=== PATIENT | male | born 1975 | race Two or more races ===

== ENCOUNTER → 2023-11-28 14:09 | Outpatient (REF) | payer BC, SELFPAY | LOC: DHCBC HW 14:09 | PROVIDERS: ATTENDING PHYSICIAN Internal Medicine; FAMILY PHYSICIAN Nurse Practitioner Adult Health | DX: I25.10 Atherosclerotic heart disease of native coronary artery without angina pectoris (principal); R06.09 Other forms of dyspnea; Z95.5 Presence of coronary angioplasty implant and graft; I10 Essential (primary) hypertension; I21.4 Non-ST elevation (NSTEMI) myocardial infarction | CPT/HCPCS: 93306 ==

== ENCOUNTER 2024-11-12 15:49 | Inpatient (IN) | payer BC, SELFPAY ==
[2024-11-12] VITALS (38 sets, daily range): BP systolic 111–170; BP diastolic 73–128; BMI 30.7; BMI 30.1
--- NOTE | 2024-11-12 09:01 | ED.GENMED ---
History of Present Illness
<Stephanie Mcwilliams SOCIAL MEDIA STRATEGIST - Last Filed: 11/12/24 16:29>
General
Chief Complaint: Chest Pain
Source: patient and spouse
Exam Limitations: none
Time Seen by Provider: 11/12/24 08:38
Nursing documentation reviewed up to this point in time: agreed with
History of Present Illness
History of Present Illness:
48-year-old male with history of MO, cardiac stents times 12/2018 at [facility], HTN presents with left upper chest pain that radiates under his left arm and up the left side of his neck, he noticed it yesterday morning, did not sleep well during
the night due to discomfort, this morning the pain was 8/10, it is now 5/10 and it is associated with shortness of breath. He denies diaphoresis, N/V, abdominal pain, dizziness or lightheadedness.
Past History
<Stephanie Mcwilliams SOCIAL MEDIA STRATEGIST - Last Filed: 11/12/24 16:29>
Past History
ED Past Medical History: HTN and MO
ED Past Surgical History: Cardiac (2018)
Social History
Tobacco: Non-smoker
Alcohol: None
Personal:
Living: with family
Employment: Employed
Review of Systems
<Stephanie Mcwilliams SOCIAL MEDIA STRATEGIST - Last Filed: 11/12/24 16:29>
Review of Systems
Allergies reviewed?: Yes
All Other Systems: ROS reviewed and negative except as documented in HPI and ROS
Constitutional: Denies fatigue
Respiratory: Reports trouble breathing (Feels mildly short of breath); Denies cough
Cardiac: Reports chest pain; Denies diaphoresis, palpitations or syncope
ABD/GI: Denies abdominal pain, nausea, vomiting or diarrhea
: Reports dysuria; Denies difficulty voiding
Musculoskeletal: Reports no symptoms
Skin: Reports no symptoms
Neurological: Reports no symptoms
Phy Exam
<Stephanie Mcwilliams, SOCIAL MEDIA STRATEGIST - Last Filed: 11/12/24 16:29>
Physical Exam
Physical Exam:
GENERAL: No acute distress. A&Ox3.
CONSTITUTIONAL: Afebrile.
EYES: clear, conjunctivae normal
ENMT: moist mucus membranes, Pharynx nl
RESPIRATORY: Regular respirations, nonlabored, lungs clear.
CARDIOVASCULAR: Regular rate and rhythm, no murmurs, no rubs.
GI: Soft, nontender, normal BS
MUSCULOSKELETAL: Moves with ease. Well perfused.
SKIN: Warm, dry, pink
PSYCH: Normal mood and affect. Well kept, interactive and appropriate
NEUROLOGIC: Awake, alert and oriented. No focal neurological deficits
Scores
<Stephanie Mcwilliams, SOCIAL MEDIA STRATEGIST - Last Filed: 11/12/24 16:29>
Heart Score for Chest Pain Patients
STEMI patient?: Not applicable
Course
<Stephanie Mcwilliams, SOCIAL MEDIA STRATEGIST - Last Filed: 11/12/24 16:29>
Orders/Labs/Results
Orders:
Orders
11/12/24
Electrocardiogram (*1) Stat
Comment: DONE EMR
11/12/24 08:09
Electrocardiogram (*1) Urgent
Reason for Study: Chest Pain
EKG- Treatment ONCE
11/12/24 08:46
CR Chest - 2 Views Urgent
Comment:
Reason For Exam: chest pain
11/12/24 08:55
Aspirin 325 mg PO NOW STA
Nitroglycerin Sublingual [Nitrostat (Sublingual)] 0.4 mg SL NOW STA
11/12/24 09:00
Complete Blood Count/With Diff Urgent
Comprehensive Metabolic Panel Urgent
Glycohemoglobin (HgbA1c) Urgent
PTT Urgent
Prothrombin Time Urgent
Troponin I Urgent
11/12/24 10:38
Ketorolac [Toradol] 15 mg .ROUTE .STK-MED ONE
11/12/24 10:39
Ketorolac [Toradol] 15 mg IV NOW STA
11/12/24 10:41
Nitroglycerin Ointment [Nitro-Bid] 1 inch TOPICAL NOW STA
11/12/24 12:57
Troponin I Urgent
11/12/24 14:32
Add On- LAB Routine
Tests Added?: hgba1c
11/12/24 15:31
Admit/Transfer Patient As Directed
Co-Sign Provider:
Level of Care: Inpatient admission
Assign to:: IVU
Physician / Group: CBC
Transfer to: IVU
Diagnosis: Unstable angina
Reason for Hospitalization: Unstable angina
Expected length of stay greater than two midnights?: Yes
ELOS- Estimated Length of Stay in days: 3
I certify the patient meets the requirements for IP care: Yes
11/12/24 15:32
PRN Pain Medication Management As Directed
May give lesser potent ordered pain med per pt: Yes
preference::
Protocol:: Medication orders for pain may be administered in a
manner that supports deferring to patient preference
when the pt is:
- Requesting an ordered lesser potent pain medication.
Least to most potent pain medications are defined
as: acetaminophen < NSAID < tramadol < opioids
(morphine, oxycodone, hydromorphone).
- Requesting a lesser dose of the same medication IF
ORDERED.
- Requesting a less intrusive route of administration
if both routes are prescribed by the provider (PO <
IV).
11/12/24 15:33
Code Status As Directed
Resuscitation Status: Full Code
Abnormal Lab Results
11/12/24
09:00
MPV 10.8 H fL
(7.4-10.4)
Absolute Monos (auto) 0.7 H 10^3/uL
(0.1-0.6)
Glucose 105 H mg/dl
(70-99)
11/12/24 09:00
11/12/24 09:00
Vital Signs
Initial and Last Documented VS:
Initial Vital Signs
Temp Pulse Resp BP Pulse Ox
98.7 F 67 18 130/90 99
11/12/24 08:10 11/12/24 08:10 11/12/24 08:10 11/12/24 08:10 11/12/24 08:10
Last Documented Vital Signs
Temp Pulse Resp BP Pulse Ox
98.7 F 64 23 115/75 97
11/12/24 08:10 11/12/24 15:15 11/12/24 15:15 11/12/24 15:00 11/12/24 15:15
<Tony Smith, DO - Last Filed: 11/12/24 12:52>
Orders/Labs/Results
Orders:
Orders
11/12/24
Electrocardiogram (*1) Stat
Comment: DONE EMR
11/12/24 08:09
Electrocardiogram (*1) Urgent
Reason for Study: Chest Pain
EKG- Treatment ONCE
11/12/24 08:46
CR Chest - 2 Views Urgent
Comment:
Reason For Exam: chest pain
11/12/24 08:55
Aspirin 325 mg PO NOW STA
Nitroglycerin Sublingual [Nitrostat (Sublingual)] 0.4 mg SL NOW STA
11/12/24 09:00
Complete Blood Count/With Diff Urgent
Comprehensive Metabolic Panel Urgent
Glycohemoglobin (HgbA1c) Urgent
PTT Urgent
Prothrombin Time Urgent
Troponin I Urgent
11/12/24 10:38
Ketorolac [Toradol] 15 mg .ROUTE .STK-MED ONE
11/12/24 10:39
Ketorolac [Toradol] 15 mg IV NOW STA
11/12/24 10:41
Nitroglycerin Ointment [Nitro-Bid] 1 inch TOPICAL NOW STA
11/12/24 12:57
Troponin I Urgent
11/12/24 14:32
Add On- LAB Routine
Tests Added?: hgba1c
11/12/24 15:31
Admit/Transfer Patient As Directed
Co-Sign Provider:
Level of Care: Inpatient admission
Assign to:: IVU
Physician / Group: CBC
Transfer to: IVU
Diagnosis: Unstable angina
Reason for Hospitalization: Unstable angina
Expected length of stay greater than two midnights?: Yes
ELOS- Estimated Length of Stay in days: 3
I certify the patient meets the requirements for IP care: Yes
11/12/24 15:32
PRN Pain Medication Management As Directed
May give lesser potent ordered pain med per pt: Yes
preference::
Protocol:: Medication orders for pain may be administered in a
manner that supports deferring to patient preference
when the pt is:
- Requesting an ordered lesser potent pain medication.
Least to most potent pain medications are defined
as: acetaminophen < NSAID < tramadol < opioids
(morphine, oxycodone, hydromorphone).
- Requesting a lesser dose of the same medication IF
ORDERED.
- Requesting a less intrusive route of administration
if both routes are prescribed by the provider (PO <
IV).
11/12/24 15:33
Code Status As Directed
Resuscitation Status: Full Code
Abnormal Lab Results
11/12/24
09:00
MPV 10.8 H fL
(7.4-10.4)
Absolute Monos (auto) 0.7 H 10^3/uL
(0.1-0.6)
Glucose 105 H mg/dl
(70-99)
11/12/24 09:00
11/12/24 09:00
Vital Signs
Initial and Last Documented VS:
Initial Vital Signs
Temp Pulse Resp BP Pulse Ox
98.7 F 67 18 130/90 99
11/12/24 08:10 11/12/24 08:10 11/12/24 08:10 11/12/24 08:10 11/12/24 08:10
Last Documented Vital Signs
Temp Pulse Resp BP Pulse Ox
98.7 F 64 23 115/75 97
11/12/24 08:10 11/12/24 15:15 11/12/24 15:15 11/12/24 15:00 11/12/24 15:15
<Stephanie Mcwilliams SOCIAL MEDIA STRATEGIST - Last Filed: 11/12/24 16:29>
MDM/Problems Addressed
Differential Diagnosis Includes:
ACS, unstable angina
MDM/Problems Addressed:
48-year-old male with history of MO, cardiac stents times 12/2018 at [facility], HTN presents with left upper chest pain that radiates under his left arm and up the left side of his neck, he noticed it yesterday morning, did not sleep well during
the night due to discomfort, this morning the pain was 8/10, it is now 5/10 and it is associated with shortness of breath. He denies diaphoresis, N/V, abdominal pain, dizziness or lightheadedness.
Afebrile, NAD
EKG: NSR
9:45 AM:
CBC normal
CMP normal
Troponin normal
Pt states CP is much improved but still there. States the pain feels the same as when he had his MO
10:35 a.m.
Pt states pain is back 8/10. Ntg paste topical ordered.
EKG repeat during pain: No change, NSR
Considering unstable angina but when I went back in to reevaluate patient, he states when he lays on his left side the pain gets worse, pain is relieved when he turns back onto his back.
3:15 AM:
Dr. Parikh, cardiology in and will take patient to the Geophysical Manager. She requested he be admitted to her service.
Pt remains stable
Chronic conditions affecting care: HTN and CAD
<Stephanie Mcwilliams SOCIAL MEDIA STRATEGIST - Last Filed: 11/12/24 16:29>
*EKG
EKG Intrepretation Date: 11/12/24
Interpretation: normal
Heart Rate: 65
Rate: normal
Rhythm: sinus
[place]: normal axis
Interval: normal interval
QRS Pattern: normal QRS
Ischemia: no ischemia
*Critical Care Note
Total Time (30-74mins, 75-104mins- exclusive of procedures): Not Applicable
ED Attending Note
<Stephanie Mcwilliams SOCIAL MEDIA STRATEGIST - Last Filed: 11/12/24 16:29>
-
Portions of this chart may have been created with voice recognition software.� Occasional wrong word or��sound alike� substitutions may have occurred due to the inherent limitations of voice recognition software.
<Tony Smith DO - Last Filed: 11/12/24 12:52>
ED Attending Note
Patient seen and examined by attending physician: Yes
I performed the substantive portion of visit, reviewed & personally made and approve the management plan that is documented in note by myself or JETHRO.: Yes
ED Attending Note:
Seen with SOCIAL MEDIA STRATEGIST examined independently 48-year-old male history of CAD status post stenting at [facility] follow with Dr. Solano conflicting story whether today's episode of chest pain is the same or different than his prior angina
Discharge Plan
Departure
Patient Disposition: Admit
Date of Disposition: 11/12/24
Time of Disposition: 15:15
Admit to: Telemetry
Presentation/result/management discussed w/ accepting MD/DO: Dr. Parikh
Condition: Good
Discharge Problem:
Chest pain
Interventions
Interventions:
*Risk Screen - Suicide Last Done: 11/12/24 08:10
*General Assessment Last Done: 11/12/24 08:10
*Neglect/Abuse Screening Last Done: 11/12/24 08:10
*ED COVID-19 Vaccine History Last Done: 11/12/24 08:59
ED- Cardiac Assessment Last Done: 11/12/24 09:14
[2024-11-12] MEDS: ASPIRIN 325 MG PO (09:08)
[2024-11-12] MEDS: NITROSTAT (SUBLINGUAL) 0.4 MG SL (09:08)
[2024-11-12 09:19] LABS: % Basophils 0.8 % (0-2); % Eosinophils 3.4 % (0-6); % Immature Granulocytes 0.5 % (0-0.5); % Lymphocytes 36.9 % (20.5-51.1); % Monocytes 8.3 % (1.7-9.3); % Neutrophils 50.1 % (42.2-75.2); Absolute Basophils 0.1 10^3/uL (0-0.2); Absolute Eosinophils 0.3 10^3/uL (0-0.7); Absolute Lymphocytes 3.2 10^3/uL (1.2-3.4); Absolute Monocytes 0.7 10^3/uL (0.1-0.6); Absolute Neutrophils 4.3 10^3/uL (1.4-6.5); Hematocrit 45.4 % (39.0-52.0); Hemoglobin 15.2 g/dL (13.0-18.0); Mean Corp Hgb Conc. 33.5 g/dL (33.0-37.0); Mean Corpuscular Hgb 29.6 pg (27.0-31.0); Mean Corpuscular Volume 88.3 fL (80.0-94.0); Mean Platelet Volume 10.8 fL (7.4-10.4); Nucleated Red Blood Cells % 0 % (-); Platelet Count 266 10^3/uL (130-400); Red Blood Cell Count 5.14 10^6/uL (4.70-6.10); Red Cell Dist. Width 14.2 % (11.5-14.5); White Blood Cell Count 8.5 10^3/uL (4.8-10.8)
[2024-11-12 09:30] LABS: ALT (SGPT) 19 U/L (0-50); AST (SGOT) 24 U/L (17-59); Albumin 4.4 g/dl (3.5-5.0); Alkaline Phosphatase 80 U/L (38-126); Blood Urea Nitrogen 18 mg/dl (9-20); Calcium 9.2 mg/dl (8.4-10.2); Carbon Dioxide 29 mmol/L (22-30); Chloride 101 mmol/L (98-107); Estimated Creatinine Clearance > 125 ml/min; Glucose 105 mg/dl (70-99); Sodium 138 mmol/L (135-145); Total Bilirubin 0.3 mg/dl (0.2-1.3); Total Protein 7.4 g/dl (6.3-8.2); eGFR > 60.00
[2024-11-12 09:38] LABS: APTT 32.1 Sec (23.4-35.0); INR 0.92; PT 12.7 Sec (11.4-14.6)
[2024-11-12 09:41] LABS: Troponin I < 0.012 ng/ml
[2024-11-12 10:10] LABS: Potassium 4.2 mmol/L (3.5-5.1)
[2024-11-12] MEDS: TORADOL 15 MG IV (10:40)
[2024-11-12] MEDS: NITRO-BID 1 INCH TOPICAL (10:48)
[2024-11-12 13:35] LABS: Troponin I < 0.012 ng/ml
--- NOTE | 2024-11-12 14:22 | HPS.HSE ---
Family Physician
-
Family Physician: KVNG Carlson
Primary Rn Renal: Travis Solano MD
Chief Complaint
-
Chest pain
History of Present Illness
Kurt Jiang is a 48-year-old male (known to Dr. Solano, his primary first assist), with coronary artery disease (NSTEMI with URIEL to OM2018), hypertension, IVCD, dyslipidemia, hypertriglyceridemia, statin intolerant, prediabetes, hepatitis C, and
current tobacco abuse who presented to the emergency department with a chief complaint of chest pain. His chest pain started yesterday. It is on the left side of his chest and radiates up his left side of his neck and into his left shoulder. At
its worst it was 8/10, he is chest pain-free at the time of this consultation. He endorses associated shortness of breath. His chest pain comes and goes. Sometimes it is with exertion and sometimes it is at rest. It does not last more than 30
minutes at a time. This is reminiscent to his prior NSTEMI in 2019
Medical History
Past Medical History
Past Medical History: Reports CAD, HTN, Hypercholesterolemia and Other (Prediabetes, hepatitis C)
Past Surgical History: Reports None
Social History
Tobacco: Smoker
Alcohol: Occasional
Drug: None
Personal:
Living: With Family
Employment: Employed
Family History
Family History: Other (Father with fatal [place] at the age of 65. Sister with congenital heart disease requiring surgery.)
Allergies / Home Medications
Allergies reflects when Allergies were last updated in [employer].
Home Medications with original date entered in [employer]
Allergy/Medication List:
Allergies: Denies
Home medication list:
Aspirin 81 mg p.o. daily
Vitamin D 2 1250 mcg p.o. Monday
Losartan�HCTZ 1 tab p.o. daily
Metoprolol tartrate 50 mg p.o. twice daily
Lovaza 1 capsule p.o. daily
Review of Systems
-
History Source: Patient
A 12 point ROS was completed and negative except as noted: Yes
Constitutional: Reports No Symptoms
EENT: Reports No Symptoms
Respiratory: Reports No Symptoms
Cardiac: Reports See HPI
Abdomen/GI: Reports No Symptoms
: Reports No Symptoms
Musculoskeletal: Reports No Symptoms
Skin: Reports No Symptoms
Neurological: Reports No Symptoms
Endocrine: Reports No Symptoms
Hematologic/Lymphatic: Reports No Symptoms
Psych: Reports No Symptoms
Physical Exam
Vital Signs
Vital Signs
Temp Pulse Resp BP Pulse Ox
98.7 F 64 18 137/91 93
11/12/24 08:10 11/12/24 10:50 11/12/24 10:50 11/12/24 10:50 11/12/24 10:50
Physical Exam
General: Well Developed, Well Nourished, No Apparent Distress, Comfortable and Conversant
HEENT: NormoCephalic, Anicteric, Moist mucous membranes and Atraumatic
Respiratory: Clear and Non Labored Respirations
Cardiac: S1/S2 and Regular Rhythm; No Peripheral Edema
GI: Soft, Non Tender, Non Distended and Normal Bowel Sounds
Rectal: Deferred by Provider
Genito-urinary: No costovertebral tender
Musculoskeletal: No Clubbing, No Cyanosis and No Edema
Skin: Warm and Dry
Neuro: AO x 3 and Slurred Speech
Hematologic/Lymphatic: No Lymphadenopathy
Psych: Calm
Laboratory Results
-
11/12/24 09:00
11/12/24 09:00
Laboratory Results
PT 12.7 Sec (11.4-14.6) 11/12/24 09:00
INR 0.92 11/12/24 09:00
APTT 32.1 Sec (23.4-35.0) 11/12/24 09:00
Total Bilirubin 0.3 mg/dl (0.2-1.3) 11/12/24 09:00
AST 24 U/L (17-59) 11/12/24 09:00
ALT 19 U/L (0-50) 11/12/24 09:00
Alkaline Phosphatase 80 U/L (38-126) 11/12/24 09:00
Troponin I < 0.012 ng/ml 11/12/24 12:57
Data Reviewed
-
Diagnostic Radiology: Report Reviewed by me
Medical Tests (Nuc Med, Echo, EKG etc): Report Reviewed by me
Lab Data: Labs Reviewed by me
Old Records: Reviewed
Impression/Plan
-
IMPRESSION/PLAN: 48M with coronary artery disease (NSTEMI with URIEL to [id number]), hypertension, IVCD, dyslipidemia, hypertriglyceridemia, statin intolerant, prediabetes, hepatitis C, and current tobacco abuse who presented to the emergency
department with a chief complaint of chest pain.
Primary first assist: Dr. Solano
Unstable angina
-With prior NSTEMI he reports having left-sided pain radiated into his axilla that would come and go, EKG at that time stable
-EKG stable, troponin <0.012
-Relief with transdermal nitroglycerin
-Echocardiogram
-Coronary angiography today
CAD
-Stent with balloon angioplasty to a 90% OM1 12/13/2018 with residual disease including a tubular 60% stenosis (FFR 0.85) and mLAD
-Medical management with aspirin and Repatha (statin intolerant)
Hypertriglyceridemia, dyslipidemia, statin intolerance - LDL > 130 08/2024, he was on Repatha in the past, unclear why it was discontinued, fasting lipid panel in a.m.
Hypertension, continue losartan and metoprolol
Prediabetes, HgbA1c, likely improved with weight loss
Hepatitis C
Current tobacco abuse, he would benefit from cessation
--- NOTE | 2024-11-12 15:24 | W.PN.UPDATE ---
Update Note
Progress Note Update
See history and physical from KVNG Avery, for full H&P.
In brief this is a 48-year-old man (known to Dr. Solano) with history of coronary artery disease (OM1 stent 2019 with residual 60% LAD stenosis, FFR 0.85) and active tobacco use who presents with left-sided chest pain radiating to his left axilla. He
reports that this occurred yesterday every time he would try to be active with only minimal exertion. Overnight it began happening at rest which is what prompted him to present to the ER. Here his troponin is negative x 2. His ECG reveals normal
sinus rhythm with nonspecific ST�T wave abnormalities. He has been given aspirin 325 mg and Nitropaste. His chest pain has resolved. He had a Lexiscan stress test in October 2023 that was normal. Echocardiogram at that time showed an LVEF 65-70%
with normal RV size and function and no significant valvular disease. His chest pain may be unstable angina. We will proceed with cardiac catheterization to rule out obstructive CAD. Long-term he will need better secondary prevention with
lipid-lowering therapy (LDL 130 in August 2024 spite being prescribed Repatha and Lovaza) and smoking cessation. Continue aspirin 81 mg daily, beta-cady, and losartan hydrochlorothiazide for hypertension.
[2024-11-12 17:26] LABS: ACT-LR - POC 313 Seconds (116-155)
[2024-11-12] MEDS: NSS 1000 IV (18:23)
--- NOTE | 2024-11-12 18:34 | PTCARENOTE ---
pt received from ear mold laboratory technician rn- aox3, on room air, able to make needs known. right radial TR band on and intact, site intact with mild ecchymosis, good pulses, pulse ox 99% on right hand, good cap refill. pt denies chest pain or any complaints at this
time. ekg completed. nsr to sb on monitor. pt educated about extremity restriction, call villagran within reach, all safety precautions in place. lungs diminished, hypoactive bowel sounds, positive bilateral pedal and radial pulses.
[2024-11-12] MEDS: LOPRESSOR 50 MG PO (18:39)
--- NOTE | 2024-11-12 18:57 | ITS.CL.PN ---
Shipyard Helper - Procedure Note
Procedure
Procedure Note:
CARDIAC CATHETERIZATION REPORT
Date of Procedure: 11/12/2024
Referring: Dr. Gamaliel Cantu MD
Indication: ACS, chest pain
PROCEDURE(S)
1. left heart catheterization
2. coronary angiography
3. IVUS LAD
4. PCI with URIEL to LAD
5. moderate sedation
6. Ultrasound-guided vascular access of right radial artery
ACCESS: 6F right radial artery (closure: radial band)
CATHETERS
1. 6F JR4
2. 6F JL3.5
MODERATE SEDATION: [ ] minutes of moderate sedation was utilized. An independent medical unit secretary was present to assist with and help manage the patient's level of consciousness and physiologic status.
ULTRASOUND GUIDED VASCULAR ACCESS ([ ]): Ultrasound was utilized for vascular access. The vessel was visualized under ultrasound and noted to be patent. An image of the vessel was stored permanently in the patient's medical record. Under direct
ultrasound guidance, vascular access was obtained using a modified Seldinger technique and a [ ] Amharic sheath was placed.
HEMODYNAMIC DATA
LV 127/11 (EDP 21) mmHg
AO 135/95 (mean 110) mmHg
CORONARY ANGIOGRAPHY
Dominance: Right
LM: Large vessel with mild distal vessel tapering.
LAD: Large caliber vessel dividing into a large diagonal with multiple branches supplying the anterior wall and a continuation vessel in the interventricular groove supplying septal branches and terminating before the apex. There is a tubular 90%
thrombotic stenosis in the proximal aspect of the large D1 that was felt to be the culprit for the patient's presentation.
LCx: Moderate caliber vessel giving rise to a early rising OM1/ramus and large branching OM2. There is a stent in the OM2 that is patent with mild ISR. There are otherwise mild luminal irregularities.
RCA: Large vessel giving rise to a large RPDA and a large RPL system with multiple branches. There are trivial luminal irregularities.
IVUS-guided PCI with URIEL to LAD
Heparin was administered to achieve ACT greater than 300. The left main was engaged with a EBU 3.5 guide catheter. A Runthrough wire was placed in the distal D1. Initial lesion preparation was performed with a 2.5 x 12 compliant balloon with full
expansion. The lesion was then stented with a 2.5 x 18 mm URIEL taken to nominal pressure. IVUS was performed demonstrating a 3.0 mm distal reference vessel diameter and 3.5 mm proximal reference vessel diameter. There was mild calcification in the
lesion. Postdilation was performed with a 3.0 mm NC balloon distally and 3.5 mm NC balloon proximally both taken to 14 kayleen with full expansion. Final angiographic result was excellent. Final IVUS demonstrated full stent expansion and apposition
without edge dissection. The wire and guide were removed and a TR band placed. The patient was loaded with 180 mg of ticagrelor.
RADIATION: dose 1211 mGy; DAP 86.1 Gy*cm2; fluoroscopy time 11.7 min
CONCLUSIONS
1. Obstructive coronary artery disease as described with patent prior LCx stent and culprit 90% thrombotic stenosis in the mid LAD successfully treated with IVUS-guided PCI with placement of a 2.5 x 18 mm URIEL postdilated distally to 3.0 mm and
proximally to 3.5 mm.
2. Mildly elevated LV filling pressure with no aortic stenosis.
RECOMMENDATIONS
1. expectant management after cardiac catheterization via right radial approach
2. DAPT with aspirin and ticagrelor for 1 year
3. aggressive secondary prevention of coronary artery disease
4. if patient wishes to have a normal life expectancy they must quit smoking
Copy to: Dr. Travis Solano MD, PhD (production gear cutter); KVNG Carlson (PCP)
Signed: Bebeto Braswell MD, PhD
[2024-11-12] MEDS: TYLENOL 650 MG PO (19:03)
--- NOTE | 2024-11-12 19:04 | PTCARENOTE ---
Addendum entered by Belle Randhawa RN 11/12/24 19:09:
Renee CALDERON notified as well.
Original Note:
cardiology md Dr. Solano and Dr. Meng notified of patients bp. report given to offgoing RN.
--- NOTE | 2024-11-12 19:20 | PTCARENOTE ---
Dr. Solano notified of pts bp- pt with mild headache- md aware. Tylenol given. no new orders per dr. solano.
--- NOTE | 2024-11-12 20:26 | PTCARENOTE ---
assumed care, pt AAOx3 BIGGS able to make needs known, instructed on activity restrictions, pt c/o headache / Tylenol given per DEC, Sinus c first degree and PVCs on the monitor, R radial R band, air removed per order, hypertensive since cath
procedure, [facility], , House provider notified, House provider directed me to cardiac PA, Hydralazine ordered PRN, lungs clear on RA SpO2 99%, BSx4 soft non-tender, family brought pt food to eat, pt due to void
urinal @ bedside, skin dry and intact, R radial puncture wound per worklist, 20G RAC, 20G L hand NS 100ml, call villagran within reach, family updated @ bedside, otherwise refer to documentation.
[2024-11-13] VITALS (18 sets, daily range): BP systolic 127–179; BP diastolic 82–135
[2024-11-13] MEDS: APRESOLINE 5 MG IV (03:26)
[2024-11-13 03:51] LABS: % Basophils 0.7 % (0-2); % Eosinophils 2.6 % (0-6); % Immature Granulocytes 0.5 % (0-0.5); % Lymphocytes 29.6 % (20.5-51.1); % Monocytes 6.8 % (1.7-9.3); % Neutrophils 59.8 % (42.2-75.2); Absolute Basophils 0.1 10^3/uL (0-0.2); Absolute Eosinophils 0.3 10^3/uL (0-0.7); Absolute Immature Granulocytes 0.1 10^3/uL (0-0.05); Absolute Monocytes 0.7 10^3/uL (0.1-0.6); Hemoglobin 14.7 g/dL (13.0-18.0); Mean Corp Hgb Conc. 33.4 g/dL (33.0-37.0); Mean Corpuscular Volume 86.8 fL (80.0-94.0); Mean Platelet Volume 10.7 fL (7.4-10.4); Nucleated Red Blood Cells % 0 % (-); Platelet Count 252 10^3/uL (130-400); Red Blood Cell Count 5.07 10^6/uL (4.70-6.10); Red Cell Dist. Width 14.1 % (11.5-14.5)
[2024-11-13 04:15] LABS: Blood Urea Nitrogen 18 mg/dl (9-20); Carbon Dioxide 25 mmol/L (22-30); Chloride 103 mmol/L (98-107); Estimated Creatinine Clearance > 125 ml/min; Glucose 95 mg/dl (70-99); HDL Cholesterol 44 mg/dl; LDL Cholesterol, Calculated 120 mg/dl; Potassium 4.2 mmol/L (3.5-5.1); Sodium 138 mmol/L (135-145); Total Cholesterol 209 mg/dl (50-199); Triglyceride 228 mg/dl (10-149); Very Low Density Lipoprotein 45 mg/dl (0-30); eGFR > 60.00
--- NOTE | 2024-11-13 04:37 | PTCARENOTE ---
systems reviewed, @ 0300 SBP 170's hydralazine given per order, SBP 161 after 30min, EVS ATTENDANT notified, ordered to give morning Lopressor early, otherwise refer to documentation
[2024-11-13] MEDS: LOPRESSOR 50 MG PO (04:44)
--- NOTE | 2024-11-13 08:15 | PTCARENOTE ---
Assumed care of pt at 0715 following shift report. Pt received resting in bed after having used BR to void. Pt denies c/o CP or SOB. No distress. Remains on RA w/ Pox 97%. No running IVs. Physical assessment completed as documented. Pt states
may be bringing him breakfast 'she brought my dinner last night'. Pt instructed on ordered diet and use of phone w/ menu provided to order breakfast if he wishes. Call sparkle w/in pt reach. Safe environment maintained.
[2024-11-13] MEDS: HYZAAR 100-25 TABLET 1 TAB PO (08:22)
[2024-11-13] MEDS: ASPIR LOW (ENTERIC COATED) 81 MG PO (08:22)
[2024-11-13] MEDS: BRILINTA 90 MG PO (08:23)
--- NOTE | 2024-11-13 10:12 | W.PN.CD ---
Today's Communication / Plan
-
Follow-up echocardiogram today
Increase metoprolol
Continue aspirin and Brilinta
Continue losartan HCTZ at home dose
Follow-up in 2 weeks. Need to sort out lipid-lowering therapy.
Impression / Plan
-
48-year-old man (known to Dr. Solano) with history of coronary artery disease (OM1 stent 2019 with residual 60% LAD stenosis, FFR 0.85) and active tobacco use who presents with unstable angina status post URIEL to mid LAD.
Unstable angina
-[facility] on 11/12/2024 with patent prior LCx stent and culprit 90% thrombotic stenosis in the mid LAD successfully treated with IVUS guided PCI with placement of a 2.5 x 18 mm URIEL postdilated distally to 3.0 mm and proximally to 3.5 mm.
-Continue aspirin 81 mg daily and Brilinta 90 mg twice daily for at least 1 year
-Increase metoprolol to 75 mg twice daily given elevated blood pressures
-Follow-up echocardiogram today
-He needs lipid-lowering therapy. LDL 120 this admission. He has not started Repatha due to elevated LFTs with statin in the past. This needs to be followed up on as an outpatient.
Hypertension:
-Increase metoprolol as above
-Continue losartan/HCTZ
Subjective: No cardiovascular complaints this morning. Chest pain has completely resolved. Patient was hypertensive overnight requiring IV hydralazine.
Physical Exam
Vital Signs/Labs
Vital Signs
Temp Pulse Resp BP Pulse Ox
98 F 71 17 127/94 99
11/13/24 08:14 11/13/24 09:00 11/13/24 09:00 11/13/24 09:00 11/13/24 09:00
11/12/24 11/13/24 11/14/24
06:59 06:59 06:59
Actual Weight 97.7 kg
11/13/24 03:31
11/13/24 03:31
PT 12.7 Sec (11.4-14.6) 11/12/24 09:00
INR 0.92 11/12/24 09:00
APTT 32.1 Sec (23.4-35.0) 11/12/24 09:00
Triglycerides 228 mg/dl (10-149) H 11/13/24 03:31
LDL Cholesterol, Calc 120 mg/dl 11/13/24 03:31
VLDL Cholesterol, Calc 45 mg/dl (0-30) H 11/13/24 03:31
HDL Cholesterol 44 mg/dl 11/13/24 03:31
LAB Results
11/12/24 11/12/24
09:00 12:57
Troponin I < 0.012 < 0.012
Physical Exam
Constitutional: No acute distress and Comfortable
Cardiovascular: Rhythm & rate is regular, Pedal edema is absent, S1S2 is normal and Murmur/rub/gallop absent
Respiratory: Respiratory effort normal and Lungs clear to auscul.
Neuro/Psych: AO x 3
Other: Cath Site (Clean, no bleeding)
Data Reviewed
-
Date of Service: November 13, 2024
Medical Decision Making: Reviewed Test Results, Independent Historian Assessment, Test Interpretation and Review of Case with other Provider
EKG: Tracing Personally Visualized and interpreted
Echo: Tracing Personally Visualized and interpreted
Labs: Labs Reviewed by me
Old Records: Reviewed
--- NOTE | 2024-11-13 11:58 | CM ---
CM following re: discharge planning.
Reviewed pt's chrat, met with pt.
Pt is a 48 year old male, admitted with primary dx of Unstable angina.
pt repprts he was born and raised in [facility], immigrated to [place] 25 years ago, resided with spouse 2SH, 3 steps to enter, has 2 supportive children. Pt described himself as independent in all areas [employer], drives, works.
Brilinta - $100.00 for 15 days supply. Pt has commercial insurance, $5.00 monthly coupon provided. Pt stated he was on Brilinta before, around 5 years ago.
Per pharmacist: Alternate: Clopidogrel 75 mg - $10.00 for 15 days supply
Prasugrel HCl 5mg - $7.19 for 15 days supply.
Both MD and pt are aware.
PCP: Eugene Cevallos
Pharmacy: [facility].
D/C plan: home no after care VN needs.
CM will follow with discharge plan updates as needed.
--- NOTE | 2024-11-13 12:15 | PTCARENOTE ---
Pt's here to visit. Updated on pt's present condition.
[2024-11-13 12:47] LABS: Glycohemoglobin (HgbA1c) 5.5 % (4.0-5.6)
--- NOTE | 2024-11-13 13:21 | W.DS.TRANS ---
DC Summary - [employer]
-
Discharge Instructions:
Discharge Diagnosis/Procedures Angioplasty and stent to Left Anterior
Descending artery
Diet Low Cholesterol
Driving Restrictions No driving for 24 hours
Other Services Cardiac Rehab
Instructions:
Stand-Alone Forms: DC Instructions- Cath/EP Lab
Changes to Home Medications: Yes
Discharge Medications:
DC Medications w/original date entered in [employer]
aspirin 81 mg tablet,delayed release 81 mg PO DAILY 11/12/24
ergocalciferol (vitamin D2) 1,250 mcg (50,000 unit) capsule (Vitamin D2) 1,250 mcg PO RIVAS 11/12/24
losartan 100 mg-hydrochlorothiazide 25 mg tablet 1 tab PO DAILY 11/12/24
omega-3 acid ethyl esters 1 gram capsule (Lovaza) 1 cap PO DAILY 11/12/24
metoprolol tartrate 50 mg tablet 75 mg (1.5 x 50 mg) PO BID #270 tabs 11/13/24
nitroglycerin 0.4 mg sublingual tablet 0.4 mg sublingual [id number] PRN chest pain #25 tabs 11/13/24
ticagrelor 90 mg tablet (Brilinta) 90 mg PO BID #180 tabs 11/13/24
Home Medication Changes
NEW: ticagrelor, nitrostat
DOSE INCREASE: metoprolol tartrate
Pending Results: No
--- NOTE | 2024-11-13 13:41 | PTCARENOTE ---
Pt discharged to home following visit from Jaz CALDERON. Pt w/o changes noted or new complaints received prior to d/c. provided transportation home.
== END 2024-11-13 14:06 | disposition home or self-care (01) | DRG 322 ==
LOC: ICU 15:49
PROVIDERS: Nurse Practitioner; Nurse Practitioner Gerontology; Registered Nurse; Student in an Organized Health Care Education/Training Program; ADMITTING PHYSICIAN Student in an Organized Health Care Education/Training Program; EMERGENCY PHYSICIAN Emergency Medicine; FAMILY PHYSICIAN Nurse Practitioner Adult Health
PROC: 4A023N7 Measurement of Cardiac Sampling and Pressure, Left Heart, Percutaneous Approach (ICD-10-PCS; 2024-11-12)
PROC: B240ZZ3 Ultrasonography of Single Coronary Artery, Intravascular (ICD-10-PCS; 2024-11-12)
PROC: B2111ZZ Fluoroscopy of Multiple Coronary Arteries using Low Osmolar Contrast (ICD-10-PCS; 2024-11-12)
PROC: 027034Z Dilation of Coronary Artery, One Artery with Drug-eluting Intraluminal Device, Percutaneous Approach (ICD-10-PCS; 2024-11-12)
DX: I25.110 Atherosclerotic heart disease of native coronary artery with unstable angina pectoris (principal); I11.9 Hypertensive heart disease without heart failure; E78.00 Pure hypercholesterolemia, unspecified; I25.2 Old myocardial infarction; Z79.82 Long term (current) use of aspirin; Z95.5 Presence of coronary angioplasty implant and graft; Z82.49 Family history of ischemic heart disease and other diseases of the circulatory system
CPT/HCPCS: 71046; 76937; 80048; 80053; 80061; 83036; 84484; 85025; 85347; 85610; 85730; 92978; 93005; 93306; 93458; 96374; 99285; C1725; C1753; C1874; C1894; C9600; Q9967